=== PATIENT | female | born 1990 | race Two or more races ===

== ENCOUNTER 2023-05-18 08:14 | Emergency (ER) | payer OTHER ==
[~2023-05-18] VITALS: Ht 170.2 cm; Wt 101.2 kg
[2023-05-18 09:31] VITALS: PULSE 77; RESP 18; O2SAT 98
[2023-05-18] MEDS ORDERED: PROM1SOL4 PO (10:12)
[2023-05-18] MEDS ORDERED: BENZ100C97 PO (10:12)
[2023-05-18] MEDS ORDERED: PRED20TA2 PO (10:12)
[2023-05-18 10:15] VITALS: BP 159/113; PULSE 77; RESP 17; TEMP 97.5; O2SAT 96
[2023-05-18] MEDS ORDERED: DexAMETHasone SOD PHOS 10MG/1ML VIAL INJ IM ONE (10:15)
== END 2023-05-18 10:25 | disposition home or self-care (01) ==
LOC: ER 08:14
DX: J40 Bronchitis, not specified as acute or chronic (principal); R03.0 Elevated blood-pressure reading, without diagnosis of hypertension
CPT/HCPCS: 96372; 99283; J1100